=== PATIENT | female | born 1940 | race African-American/Black ===

== ENCOUNTER 2018-03-14 22:14 | Emergency (ER) | payer BC ==
[~2018-03-14] VITALS: Ht 167.6 cm; Wt 51.0 kg
[2018-03-15 00:41] LABS: BG BASE EXCESS -2.4 mmol/L (-2.0-2.0); BG CARBOXYHEMOGLOBIN 1.8 % (0.5-1.5); BG DEOXYHEMOGLOBIN 5.7 % (0.0-5.0); BG FRACTION INSPIRED OXYGEN 21; BG HCO3 ACT 22.9 mmol/L (22.0-26.0); BG METHEMOGLOBIN 0.1 % (0.0-1.5); BG OXYGEN SATURATION 94.2 % (92.0-98.5); BG OXYHEMOGLOBIN 92.4 % (94.0-97.0); BG PCO2 41.3 mmHg (35.0-45.0); BG PH 7.361 (7.350-7.450); BG PO2 74.9 mmHg (75.0-100.0); BG SAMPLE SITE LEFT RADIAL; BG TOTAL HEMOGLOBIN 12.5 g/dL (12.0-18.0); BG VENT MODE ROOM AIR
[2018-03-15] MEDS ORDERED: LORAZEPAM 1MG TABLET PO ONE (02:15)
[2018-03-15] MEDS ORDERED: ACETAMINOPHEN 325MG TABLET PO ONE (03:15)
[2018-03-15 06:00] VITALS: BP 113/62
== END 2018-03-15 08:00 | disposition home or self-care (01) ==
LOC: ER 22:14
DX: F03.90 Unspecified dementia, unspecified severity, without behavioral disturbance, psychotic disturbance, mood disturbance, and anxiety (principal); R41.0 Disorientation, unspecified; R03.0 Elevated blood-pressure reading, without diagnosis of hypertension; N18.6 End stage renal disease; Z99.2 Dependence on renal dialysis
CPT/HCPCS: 36600; 82375; 82805; 99284